=== PATIENT | male | born 1990 ===

== ENCOUNTER 2017-08-03 02:33 | Emergency (ER) | payer SELFPAY ==
[2017-08-03 02:42] VITALS: BMI 25.8
[2017-08-03 02:53] VITALS: RESP 18; TEMP 98.2; O2SAT 100
--- NOTE | 2017-08-03 03:03 | ED PDOC ---
HPI: Head Injury Time Seen by Provider: 08/03/17 02:36 Chief Complaint (Nursing): Trauma Past Medical History Vital Signs: Last Vital Signs Temp 98.2 F 08/03/17 02:42 Pulse 81 08/03/17 02:42 Resp 18 08/03/17 02:42 BP 110/80 08/03/17 02:42 Pulse Ox 100 08/03/17 02:42 - Allergies Allergies/Adverse Reactions: Allergies Allergy/AdvReac Type Severity Reaction Status Date / Time No Known Allergies Allergy Verified 08/03/17 02:42 - ECG O2 Sat by Pulse Oximetry: 100 Disposition - Disposition
--- NOTE | 2017-08-03 04:30 | ED PDOC ---
HPI: Head Injury Time Seen by Provider: 08/03/17 02:36 Chief Complaint (Nursing): Trauma Chief Complaint (Provider): head injury History Per: Patient History/Exam Limitations: no limitations Onset/Duration Of Symptoms: Mins (prior to arrival) Additional Complaint(s): Pedro Dixon is a 27 year old male who presents to the emergency department for an evaluation of a head injury sustained when patient tripped down wet stairs and struck back of head while intoxicated prior to arrival. Denied any loss of consciousness. PMD: none provided Past Medical History Reviewed: Historical Data, Nursing Documentation, Vital Signs Vital Signs: Last Vital Signs Temp 98.2 F 08/03/17 02:42 Pulse 81 08/03/17 02:42 Resp 18 08/03/17 02:42 BP 110/80 08/03/17 02:42 Pulse Ox 100 08/03/17 02:42 - Medical History PMH: Denies: Chronic Kidney Disease - Surgical History Other surgeries: brain tumor removed - Family History Family History: States: Unknown Family Hx - Social History Current smoker - smoking cessation education provided: No Ex-Smoker (has not smoked in the last 12 months): No Alcohol: Social Drugs: Denies - Allergies Allergies/Adverse Reactions: Allergies Allergy/AdvReac Type Severity Reaction Status Date / Time No Known Allergies Allergy Verified 08/03/17 02:42 Review of Systems ROS Statement: Except As Marked, All Systems Reviewed And Found Negative Neurological: Positive for: Other (scalp abrasion to back to head) Psych: Negative for: Other (LOC) Physical Exam - Reviewed Nursing Documentation Reviewed: Yes Vital Signs Reviewed: Yes - Physical Exam Appears: Positive for: Well, Non-toxic, No Acute Distress Head Exam: Positive for: NORMOCEPHALIC. Negative for: ATRAUMATIC, NORMAL INSPECTION Neurologic/Psych: Positive for: Alert, Oriented, Gait (slightly unsteady), Other (scalp abrasion noted on back of head). Negative for: Aphasia - ECG O2 Sat by Pulse Oximetry: 100 (RA) Pulse Ox Interpretation: Normal Medical Decision Making Medical Decision Making: Initial Impression: Head injury Initial Plan: * CT head without contrast * Adacel 0.5ml IM Time: 0432 --CT head FINDINGS: There is subcutaneous soft tissue swelling left parietal region. No intracranial hemorrhage. No extra axial collections. No intracranial edema. No fluid in the sinuses or mastoid air cells. Left frontal craniotomy. There is extensive abnormality of the frontal bone and the orbital roofs, greater on the left, incompletely imaged. There is extensive heterogeneity of the frontal bone and orbital roofs with ground glass density and areas of destruction as well as areas of increased density. The appearance suggests fibrous dysplasia. I would first recommend correlation with the patient 's history followed by correlation with prior images to determine if this represents a change from the patient's baseline. There are no acute fractures identified. IMPRESSION: No acute intracranial injury. Extensive osseous abnormality involving the frontal bone and orbital roofs with evidence of craniotomy in this region. 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 First recommend correlation with the patient's history followed by correlation with prior images to determine if this represents a change from the patient's baseline. Scribe Attestation: Documented by Eri Pinzon, acting as a scribe for Gabi Whittaker PA-C. Provider Scribe Attestation: All medical record entries made by the Scribe were at my direction and personally dictated by me. I have reviewed the chart and agree that the record accurately reflects my personal performance of the history, physical exam, medical decision making, and the department course for this patient. I have also personally directed, reviewed, and agree with the discharge instructions and disposition. Disposition - Clinical Impression Clinical Impression: Scalp abrasion, Head injury - Patient ED Disposition Is Patient to be Admitted: No - Disposition Disposition: Routine/Home Disposition Time: 04:54 Condition: GOOD Instructions: Head Injury (ED) Forms: [facility] (Mongolian)
--- NOTE | 2017-08-03 04:33 | CT ---
EXAM: CT Head Without Intravenous Contrast EXAM DATE/TIME: 08/03/2017 2:50 AM CLINICAL HISTORY: 27 years old, male; Pain; Headache; Post-traumatic; Additional info: Head injury, headache, has been drinking TECHNIQUE: Axial computed tomography images of the head/brain without intravenous contrast. All CT scans at this facility use one or more dose reduction techniques, viz.: automated exposure control; ma/kV adjustment per patient size (including targeted exams where dose is matched to indication; i.e. head); or iterative reconstruction technique. Coronal and sagittal reformatted images were created and reviewed. COMPARISON: No relevant prior studies available. FINDINGS: There is subcutaneous soft tissue swelling left parietal region. No intracranial hemorrhage. No extra axial collections. No intracranial edema. No fluid in the sinuses or mastoid air cells. Left frontal craniotomy. There is extensive abnormality of the frontal bone and the orbital roofs, greater on the left, incompletely imaged. There is extensive heterogeneity of the frontal bone and orbital roofs with ground glass density and areas of destruction as well as areas of increased density. The appearance suggests fibrous dysplasia. I would first recommend correlation with the patient's history followed by correlation with prior images to determine if this represents a change from the patient's baseline. There are no acute fractures identified. IMPRESSION: No acute intracranial injury. Extensive osseous abnormality involving the frontal bone and orbital roofs with evidence of craniotomy in this region. 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 First recommend correlation with the patient's history followed by correlation with prior images to determine if this represents a change from the patient's baseline.
[2017-08-03 04:58] VITALS: BP 108/76; PULSE 78
== END 2017-08-03 04:57 | disposition home or self-care (01) ==
LOC: H.ER 02:33
DX: S00.01XA Abrasion of scalp, initial encounter (principal); S09.90XA Unspecified injury of head, initial encounter; W10.9XXA Fall (on) (from) unspecified stairs and steps, initial encounter